=== PATIENT | female | born 1960 | race Caucasian/White ===

== ENCOUNTER 2018-03-07 06:07 | Day surgery (SDC) | payer OTHER ==
[~2018-03-07] VITALS: Ht 157.5 cm; Wt 82.3 kg
[~2018-03-07 06:07] MED LIST: SODIUM CHLORIDE 0.9% 1,000 ML IV ONE
[2018-03-07] MEDS ORDERED: BENZOCAINE 20% 50 MCG/SPRAY 57 GM TP ONE (06:08)
[2018-03-07] MEDS ORDERED: LIDOCAINE HCL 4% 50 ML SOLUTION TP ONE (06:08)
[2018-03-07] MEDS ORDERED: LIDOCAINE HCL 2% 5 ML JELLY TP ONE (06:08)
[2018-03-07] MEDS ORDERED: ALBUTEROL SULFATE 2.5 MG/0.5 ML NEB SOLUTION NEB ONE (06:08)
[2018-03-07] MEDS ORDERED: SODIUM CHLORIDE 0.9% 1,000 ML IV ONE (06:32)
[2018-03-07] MEDS ORDERED: LISI-662 PO (07:24)
[2018-03-07] MEDS ORDERED: BENZ200C53 PO (07:24)
[2018-03-07] MEDS ORDERED: LEVO25TA9 PO (07:24)
[2018-03-07] MEDS ORDERED: GUAI118S23 PO (07:24)
[2018-03-07] MEDS ORDERED: MONT10TA21 PO (07:24)
[2018-03-07] MEDS ORDERED: FentaNYL CITRATE-PF 100 MCG/2 ML VIAL ONE (07:44)
[2018-03-07] MEDS ORDERED: MIDAZOLAM HCL 2 MG/2 ML VIAL ONE (07:44)
[2018-03-07] MEDS ORDERED: MethylPREDNISolone SOD SUCC 125 MG/2 ML VIAL IVP ONE (08:30)
[2018-03-07] MEDS ORDERED: PROMETH/PHENYLEPHRINE/CODEINE 5 ML ORAL.SYG PO STA (08:44)
[2018-03-07] MEDS ORDERED: MethylPREDNISolone SOD SUCC 125 MG/2 ML VIAL ONE (08:52)
[2018-03-07] MEDS ORDERED: OXYGEN THERAPY IH SCH (20:00)
== END 2018-03-07 10:00 | disposition home or self-care (01) ==
LOC: SURGERY 06:07
PROVIDERS: ATTEND Internal Medicine Critical Care Medicine
DX: J38.4 Edema of larynx (principal); B37.0 Candidal stomatitis; J84.111 Idiopathic interstitial pneumonia, not otherwise specified; E78.00 Pure hypercholesterolemia, unspecified; I10 Essential (primary) hypertension; Z98.890 Other specified postprocedural states; Z72.89 Other problems related to lifestyle; Z79.899 Other long term (current) drug therapy
CPT/HCPCS: 31623; 31624; 71045; 87015; 87070; 87205; 87220; 88108; 88312; J2250; J2370; J2930; J3010; J7030